=== PATIENT | male | born 1935 | race Caucasian/White ===

== ENCOUNTER → 2016-08-05 | Outpatient (CLI) | payer MEDICARE, OTHER ==
[2016-08-05 10:17] LABS: CHLORIDE,CL 104 mmol/L (98-110); SODIUM,NA 136 mmol/L (136-146)
== END ==
LOC: MW.CHFP 08:46
PROVIDERS: ATTEND Emergency Medicine
DX: N45.3 Epididymo-orchitis (principal); E03.9 Hypothyroidism, unspecified; I10 Essential (primary) hypertension; C77.9 Secondary and unspecified malignant neoplasm of lymph node, unspecified; N39.0 Urinary tract infection, site not specified
CPT/HCPCS: 36415; 80053; 81001; 84443; 85025; 87086; 87088; 87186; G0463

== ENCOUNTER → 2016-08-11 | Outpatient (CLI) | payer MEDICARE, OTHER, MEDICAID | LOC: MW.CHFP 08:00 | PROVIDERS: ATTEND Emergency Medicine | DX: N39.0 Urinary tract infection, site not specified (principal); B96.20 Unspecified Escherichia coli [E. coli] as the cause of diseases classified elsewhere; N45.3 Epididymo-orchitis | CPT/HCPCS: G0463 ==

== ENCOUNTER → 2016-09-07 | Outpatient (CLI) | payer MEDICARE, OTHER ==
[2016-09-07 08:20] LABS: CHLORIDE,CL 107 mmol/L (98-110); SODIUM,NA 143 mmol/L (136-146)
== END ==
LOC: MW.CHFP 07:29
PROVIDERS: ATTEND Emergency Medicine
DX: E03.9 Hypothyroidism, unspecified (principal)
CPT/HCPCS: 36415; 80048; 84443; G0463

== ENCOUNTER → 2016-09-08 | Outpatient (CLI) | payer MEDICARE, OTHER | LOC: MW.CHFP 09:47 | PROVIDERS: ATTEND Emergency Medicine | DX: N39.0 Urinary tract infection, site not specified (principal); N45.3 Epididymo-orchitis; B96.20 Unspecified Escherichia coli [E. coli] as the cause of diseases classified elsewhere | CPT/HCPCS: 81001 ==

== ENCOUNTER → 2016-10-07 | Outpatient (CLI) | payer MEDICARE, OTHER | END | disposition home or self-care (01) | LOC: MW.CHFP 08:32 | PROVIDERS: ATTEND Emergency Medicine | DX: R61 Generalized hyperhidrosis (principal); E03.9 Hypothyroidism, unspecified; N39.0 Urinary tract infection, site not specified; B96.20 Unspecified Escherichia coli [E. coli] as the cause of diseases classified elsewhere | CPT/HCPCS: 36415; 84443; 85025; 85652; 86140; G0463 ==

== ENCOUNTER 2024-01-07 11:35 | Inpatient (IN) | payer MEDICARE, OTHER ==
[2024-01-07 11:58] LABS: BASOPHILS ABSOLUTE AUTO 0.01 K/uL (0.00-0.20); BASOPHILS PERCENT AUTO 0.1 % (0.0-1.0); EOSINOPHILS ABSOLUTE AUTO 0.02 K/uL (0.00-0.45); EOSINOPHILS PERCENT AUTO 0.2 % (0.0-6.0); HEMATOCRIT 33.7 % (42.0-52.0); HEMOGLOBIN 11.8 g/dL (14.0-18.0); IMMATURE GRAN ABSOLUTE AUTO 0.02 K/uL (0.00-0.05); IMMATURE GRAN PERCENT AUTO 0.2 % (0.0-0.4); LYMPHOCYTES ABSOLUTE AUTO 1.92 K/uL (1.00-4.80); LYMPHOCYTES PERCENT AUTO 21.5 % (24.0-44.0); MEAN CORPUSCULAR HEMOGLOBIN 36.2 pg (28.0-32.0); MEAN CORPUSCULAR VOLUME 103.4 fL (83.0-99.0); MEAN PLATELET VOLUME 11.8 fL (9.4-12.4); MONOCYTES ABSOLUTE AUTO 0.42 K/uL (0.00-0.80); MONOCYTES PERCENT AUTO 4.7 % (0.0-8.0); NEUTROPHILS ABSOLUTE AUTO 6.52 K/uL (1.80-7.70); NEUTROPHILS PERCENT AUTO 73.3 % (41.0-71.0); PLATELET COUNT,PLT 103 K/uL (150-400); RED BLOOD CELL COUNT 3.26 M/uL (4.52-5.90); WHITE BLOOD CELL COUNT,WBC 8.91 K/uL (3.9-11.3)
[2024-01-07] MEDS: Ondansetron 4 MG/2 ML SDV IVPUSH ONE (12:00)
[2024-01-07] MEDS: Sodium Chloride 0.9% 1,000 ML IV ONE ×3 (12:00→13:53)
[2024-01-07 12:12] LABS: INR 1.25 (0.86-1.11)
[2024-01-07 12:25] LABS: A/G RATIO 0.8 (0.9-1.6); BILIRUBIN TOTAL 0.1 mg/dL (0.2-1.0); CALCIUM 8.3 mg/dL (8.5-10.1); CARBON DIOXIDE,CO2 18.5 mmol/L (21.0-32.0); CREATININE 6.2 mg/dL (0.8-1.3); EST CRCL DRUG DOSING (CG) 8.27 mL/min; POTASSIUM,K 4.5 mmol/L (3.5-5.1); PROTEIN TOTAL,TP 6.8 g/dL (6.4-8.2)
[2024-01-07 13:10] LABS: CORONAVIRUS COVID-19 NAA NEGATIVE (NEGATIVE); INFLUENZA A NAA NEGATIVE (NEGATIVE); INFLUENZA B NAA NEGATIVE (NEGATIVE)
[2024-01-07 14:14] LABS: APPEARANCE,URINE SLT CLOUDY; COLOR,URINE YELLOW; GLUCOSE,URINE NEGATIVE (NEGATIVE); KETONES,URINE TRACE mg/dL (NEGATIVE); LEUKOCYTE ESTERASE,URINE MODERATE (NEGATIVE); NITRITE,URINE NEGATIVE (NEGATIVE); OCCULT BLOOD,URINE LARGE (NEGATIVE); PROTEIN,URINE 100 mg/dL (NEGATIVE); UROBILINOGEN,URINE 0.2 EU/dL (<2.0)
[2024-01-07 14:18] LABS: BILIRUBIN,URINE SMALL (NEGATIVE)
[2024-01-07 14:24] LABS: AMORPHOUS SEDIMENT,URINE FEW (NEGATIVE); BACTERIA,URINE 2+ (NEGATIVE); EPITHELIAL CELLS,URINE RARE (NONE-FEW); WBC,URINE TOO NUMEROUS TO CT (0-5/HPF)
[2024-01-07 14:26] LABS: CALCIUM 7.4 mg/dL (8.5-10.1); CARBON DIOXIDE,CO2 18.9 mmol/L (21.0-32.0); CREATININE 5.6 mg/dL (0.8-1.3); EST CRCL DRUG DOSING (CG) 9.16 mL/min; POTASSIUM,K 4.9 mmol/L (3.5-5.1)
[2024-01-07] MEDS: cefTRIAXone 1 GM in Sodium Chloride 0.9% 50 ML IV ONE (14:57)
[2024-01-07 15:47] LABS: LACTIC ACID 1.1 mmol/L (0.4-2.0)
[2024-01-07 17:28] LABS: CALCIUM 7.4 mg/dL (8.5-10.1); CARBON DIOXIDE,CO2 19.5 mmol/L (21.0-32.0); CREATININE 5.3 mg/dL (0.8-1.3); EST CRCL DRUG DOSING (CG) 9.68 mL/min; POTASSIUM,K 4.9 mmol/L (3.5-5.1)
[2024-01-07] MEDS: Ondansetron 4 MG/2 ML SDV IVPUSH PRN (17:57)
[2024-01-07] MEDS: Sodium Chloride 0.9% 1,000 ML IV SCH (20:34)
[2024-01-07] MEDS: Rosuvastatin 10 MG Tab PO SCH (20:41)
[2024-01-08] MEDS: Sodium Chloride 0.9% 500 ML IV SCH (04:09)
[2024-01-08 06:38] LABS: A/G RATIO 0.8 (0.9-1.6); ALBUMIN 2.2 g/dL (3.4-5.0); BILIRUBIN TOTAL 0.4 mg/dL (0.2-1.0); CALCIUM 6.5 mg/dL (8.5-10.1); CARBON DIOXIDE,CO2 18.2 mmol/L (21.0-32.0); CREATININE 4.4 mg/dL (0.8-1.3); EST CRCL DRUG DOSING (CG) 11.66 mL/min; POTASSIUM,K 3.9 mmol/L (3.5-5.1); PROTEIN TOTAL,TP 4.9 g/dL (6.4-8.2)
[2024-01-08] MEDS: Levothyroxine 100 MCG Tab PO SCH (06:38)
[2024-01-08 07:38] LABS: EOSINOPHILS ABSOLUTE AUTO 0.07 K/uL (0.00-0.45); EOSINOPHILS PERCENT AUTO 1.3 % (0.0-6.0); HEMATOCRIT 25.6 % (42.0-52.0); IMMATURE GRAN ABSOLUTE AUTO 0.01 K/uL (0.00-0.05); IMMATURE GRAN PERCENT AUTO 0.2 % (0.0-0.4); LYMPHOCYTES ABSOLUTE AUTO 1.31 K/uL (1.00-4.80); LYMPHOCYTES PERCENT AUTO 24.6 % (24.0-44.0); MEAN CORPUSCULAR HEMOGLOBIN 36.6 pg (28.0-32.0); MEAN CORPUSCULAR HGB CONC 35.2 g/dL (32.0-36.0); MEAN CORPUSCULAR VOLUME 104.1 fL (83.0-99.0); MEAN PLATELET VOLUME 11.7 fL (9.4-12.4); MONOCYTES ABSOLUTE AUTO 0.34 K/uL (0.00-0.80); MONOCYTES PERCENT AUTO 6.4 % (0.0-8.0); NEUTROPHILS PERCENT AUTO 67.5 % (41.0-71.0); RED BLOOD CELL COUNT 2.46 M/uL (4.52-5.90); WHITE BLOOD CELL COUNT,WBC 5.33 K/uL (3.9-11.3)
[2024-01-08 07:39] LABS: PLATELET COUNT,PLT 82 K/uL (150-400)
[2024-01-08] MEDS: Norepinephrine Bit/D5W Premix 250 ML IV SCH (10:29)
[2024-01-08] MEDS: cefTRIAXone 1 GM in Sodium Chloride 0.9% 50 ML IV SCH (14:51)
[2024-01-09 05:56] LABS: BASOPHILS ABSOLUTE AUTO 0.01 K/uL (0.00-0.20); BASOPHILS PERCENT AUTO 0.2 % (0.0-1.0); EOSINOPHILS ABSOLUTE AUTO 0.12 K/uL (0.00-0.45); EOSINOPHILS PERCENT AUTO 2.8 % (0.0-6.0); HEMATOCRIT 26.3 % (42.0-52.0); HEMOGLOBIN 9.4 g/dL (14.0-18.0); LYMPHOCYTES ABSOLUTE AUTO 1.19 K/uL (1.00-4.80); LYMPHOCYTES PERCENT AUTO 28.1 % (24.0-44.0); MEAN CORPUSCULAR HEMOGLOBIN 36.4 pg (28.0-32.0); MEAN CORPUSCULAR HGB CONC 35.7 g/dL (32.0-36.0); MEAN CORPUSCULAR VOLUME 101.9 fL (83.0-99.0); MEAN PLATELET VOLUME 12.1 fL (9.4-12.4); MONOCYTES ABSOLUTE AUTO 0.22 K/uL (0.00-0.80); MONOCYTES PERCENT AUTO 5.2 % (0.0-8.0); NEUTROPHILS ABSOLUTE AUTO 2.69 K/uL (1.80-7.70); NEUTROPHILS PERCENT AUTO 63.7 % (41.0-71.0); RED BLOOD CELL COUNT 2.58 M/uL (4.52-5.90); WHITE BLOOD CELL COUNT,WBC 4.23 K/uL (3.9-11.3)
[2024-01-09 06:27] LABS: A/G RATIO 0.7 (0.9-1.6); ALBUMIN 2.2 g/dL (3.4-5.0); BILIRUBIN TOTAL 0.4 mg/dL (0.2-1.0); CALCIUM 6.6 mg/dL (8.5-10.1); CARBON DIOXIDE,CO2 15.5 mmol/L (21.0-32.0); CREATININE 3.5 mg/dL (0.8-1.3); EST CRCL DRUG DOSING (CG) 14.66 mL/min; MAGNESIUM 1.8 mg/dL (1.8-2.4); PROTEIN TOTAL,TP 5.2 g/dL (6.4-8.2)
[2024-01-09 06:59] LABS: PLATELET COUNT,PLT 83 K/uL (150-400)
[2024-01-09] MEDS: Lactated Ringers 1,000 ML IV SCH (09:45)
[2024-01-09] MEDS: Midazolam 1 MG/ML 2 ML SDV IVPUSH ONE (15:05)
[2024-01-10 05:48] LABS: BASOPHILS ABSOLUTE AUTO 0.01 K/uL (0.00-0.20); BASOPHILS PERCENT AUTO 0.2 % (0.0-1.0); EOSINOPHILS PERCENT AUTO 4.9 % (0.0-6.0); HEMATOCRIT 24.8 % (42.0-52.0); HEMOGLOBIN 8.8 g/dL (14.0-18.0); LYMPHOCYTES ABSOLUTE AUTO 1.58 K/uL (1.00-4.80); LYMPHOCYTES PERCENT AUTO 38.6 % (24.0-44.0); MEAN CORPUSCULAR HEMOGLOBIN 36.2 pg (28.0-32.0); MEAN CORPUSCULAR HGB CONC 35.5 g/dL (32.0-36.0); MEAN CORPUSCULAR VOLUME 102.1 fL (83.0-99.0); MEAN PLATELET VOLUME 12.1 fL (9.4-12.4); MONOCYTES ABSOLUTE AUTO 0.28 K/uL (0.00-0.80); MONOCYTES PERCENT AUTO 6.8 % (0.0-8.0); NEUTROPHILS ABSOLUTE AUTO 2.02 K/uL (1.80-7.70); NEUTROPHILS PERCENT AUTO 49.5 % (41.0-71.0); PLATELET COUNT,PLT 64 K/uL (150-400); RED BLOOD CELL COUNT 2.43 M/uL (4.52-5.90); WHITE BLOOD CELL COUNT,WBC 4.09 K/uL (3.9-11.3)
[2024-01-10 06:08] LABS: CALCIUM 6.9 mg/dL (8.5-10.1); CARBON DIOXIDE,CO2 21.4 mmol/L (21.0-32.0); CREATININE 2.8 mg/dL (0.8-1.3); EST CRCL DRUG DOSING (CG) 18.32 mL/min
[2024-01-10] MEDS: Pantoprazole 40 MG in Sodium Chloride 0.9% 10 ML IVPUSH ONE (09:01)
[2024-01-11 05:42] LABS: BASOPHILS ABSOLUTE AUTO 0.01 K/uL (0.00-0.20); BASOPHILS PERCENT AUTO 0.2 % (0.0-1.0); EOSINOPHILS ABSOLUTE AUTO 0.27 K/uL (0.00-0.45); HEMOGLOBIN 9.2 g/dL (14.0-18.0); LYMPHOCYTES ABSOLUTE AUTO 1.49 K/uL (1.00-4.80); MEAN CORPUSCULAR HEMOGLOBIN 35.8 pg (28.0-32.0); MEAN CORPUSCULAR HGB CONC 35.4 g/dL (32.0-36.0); MEAN CORPUSCULAR VOLUME 101.2 fL (83.0-99.0); MEAN PLATELET VOLUME 11.8 fL (9.4-12.4); MONOCYTES ABSOLUTE AUTO 0.28 K/uL (0.00-0.80); MONOCYTES PERCENT AUTO 6.2 % (0.0-8.0); NEUTROPHILS ABSOLUTE AUTO 2.47 K/uL (1.80-7.70); NEUTROPHILS PERCENT AUTO 54.6 % (41.0-71.0); PLATELET COUNT,PLT 69 K/uL (150-400); RED BLOOD CELL COUNT 2.57 M/uL (4.52-5.90); WHITE BLOOD CELL COUNT,WBC 4.52 K/uL (3.9-11.3)
[2024-01-11 06:00] LABS: CALCIUM 7.3 mg/dL (8.5-10.1); CARBON DIOXIDE,CO2 20.8 mmol/L (21.0-32.0); CREATININE 2.3 mg/dL (0.8-1.3); EST CRCL DRUG DOSING (CG) 22.3 mL/min
[2024-01-11] MEDS: Levothyroxine 150 MCG Tab PO SCH (06:30)
[2024-01-11] MEDS: Pantoprazole 40 MG Tab.CR PO SCH (06:30)
[2024-01-11] MEDS: Midodrine 5 MG Tab PO SCH (10:07)
[2024-01-12 05:39] LABS: EOSINOPHILS ABSOLUTE AUTO 0.25 K/uL (0.00-0.45); EOSINOPHILS PERCENT AUTO 6.5 % (0.0-6.0); HEMATOCRIT 23.9 % (42.0-52.0); HEMOGLOBIN 8.4 g/dL (14.0-18.0); IMMATURE GRAN ABSOLUTE AUTO 0.01 K/uL (0.00-0.05); IMMATURE GRAN PERCENT AUTO 0.3 % (0.0-0.4); LYMPHOCYTES ABSOLUTE AUTO 1.47 K/uL (1.00-4.80); LYMPHOCYTES PERCENT AUTO 38.3 % (24.0-44.0); MEAN CORPUSCULAR HEMOGLOBIN 36.1 pg (28.0-32.0); MEAN CORPUSCULAR HGB CONC 35.1 g/dL (32.0-36.0); MEAN CORPUSCULAR VOLUME 102.6 fL (83.0-99.0); MEAN PLATELET VOLUME 11.2 fL (9.4-12.4); MONOCYTES ABSOLUTE AUTO 0.23 K/uL (0.00-0.80); NEUTROPHILS ABSOLUTE AUTO 1.88 K/uL (1.80-7.70); NEUTROPHILS PERCENT AUTO 48.9 % (41.0-71.0); PLATELET COUNT,PLT 62 K/uL (150-400); RED BLOOD CELL COUNT 2.33 M/uL (4.52-5.90); WHITE BLOOD CELL COUNT,WBC 3.84 K/uL (3.9-11.3)
[2024-01-12 06:02] LABS: CALCIUM 7.3 mg/dL (8.5-10.1); CARBON DIOXIDE,CO2 22.5 mmol/L (21.0-32.0); CREATININE 1.9 mg/dL (0.8-1.3); POTASSIUM,K 3.7 mmol/L (3.5-5.1)
[2024-01-12] MEDS: Ampicillin 2 GM in Sodium Chloride 0.9% 100 ML IV SCH (10:07)
[2024-01-12] MEDS: Midodrine 5 MG Tab PO ONE (11:35)
[2024-01-12] MEDS: Midodrine 5 MG Tab PO SCH (21:13)
[2024-01-13 05:43] LABS: EOSINOPHILS ABSOLUTE AUTO 0.17 K/uL (0.00-0.45); EOSINOPHILS PERCENT AUTO 4.6 % (0.0-6.0); HEMATOCRIT 22.3 % (42.0-52.0); LYMPHOCYTES ABSOLUTE AUTO 1.26 K/uL (1.00-4.80); MEAN CORPUSCULAR HEMOGLOBIN 36.7 pg (28.0-32.0); MEAN CORPUSCULAR HGB CONC 35.9 g/dL (32.0-36.0); MEAN CORPUSCULAR VOLUME 102.3 fL (83.0-99.0); MEAN PLATELET VOLUME 11.6 fL (9.4-12.4); MONOCYTES ABSOLUTE AUTO 0.23 K/uL (0.00-0.80); MONOCYTES PERCENT AUTO 6.2 % (0.0-8.0); NEUTROPHILS ABSOLUTE AUTO 2.05 K/uL (1.80-7.70); NEUTROPHILS PERCENT AUTO 55.2 % (41.0-71.0); PLATELET COUNT,PLT 72 K/uL (150-400); RED BLOOD CELL COUNT 2.18 M/uL (4.52-5.90); WHITE BLOOD CELL COUNT,WBC 3.71 K/uL (3.9-11.3)
[2024-01-13 05:57] LABS: CALCIUM 7.3 mg/dL (8.5-10.1); CARBON DIOXIDE,CO2 23.3 mmol/L (21.0-32.0); CREATININE 1.8 mg/dL (0.8-1.3); EST CRCL DRUG DOSING (CG) 28.5 mL/min; POTASSIUM,K 4.1 mmol/L (3.5-5.1)
[2024-01-14 05:59] LABS: BASOPHILS ABSOLUTE AUTO 0.01 K/uL (0.00-0.20); BASOPHILS PERCENT AUTO 0.3 % (0.0-1.0); EOSINOPHILS ABSOLUTE AUTO 0.19 K/uL (0.00-0.45); EOSINOPHILS PERCENT AUTO 5.9 % (0.0-6.0); HEMATOCRIT 23.1 % (42.0-52.0); HEMOGLOBIN 8.2 g/dL (14.0-18.0); LYMPHOCYTES PERCENT AUTO 43.6 % (24.0-44.0); MEAN CORPUSCULAR HEMOGLOBIN 36.4 pg (28.0-32.0); MEAN CORPUSCULAR HGB CONC 35.5 g/dL (32.0-36.0); MEAN CORPUSCULAR VOLUME 102.7 fL (83.0-99.0); MONOCYTES ABSOLUTE AUTO 0.25 K/uL (0.00-0.80); MONOCYTES PERCENT AUTO 7.8 % (0.0-8.0); NEUTROPHILS ABSOLUTE AUTO 1.36 K/uL (1.80-7.70); NEUTROPHILS PERCENT AUTO 42.4 % (41.0-71.0); PLATELET COUNT,PLT 84 K/uL (150-400); RED BLOOD CELL COUNT 2.25 M/uL (4.52-5.90); WHITE BLOOD CELL COUNT,WBC 3.21 K/uL (3.9-11.3)
[2024-01-14 06:21] LABS: CALCIUM 7.7 mg/dL (8.5-10.1); CARBON DIOXIDE,CO2 25.7 mmol/L (21.0-32.0); CREATININE 1.7 mg/dL (0.8-1.3); EST CRCL DRUG DOSING (CG) 30.18 mL/min; POTASSIUM,K 3.8 mmol/L (3.5-5.1)
[2024-01-15 06:14] LABS: BASOPHILS ABSOLUTE AUTO 0.01 K/uL (0.00-0.20); BASOPHILS PERCENT AUTO 0.3 % (0.0-1.0); EOSINOPHILS ABSOLUTE AUTO 0.17 K/uL (0.00-0.45); EOSINOPHILS PERCENT AUTO 5.1 % (0.0-6.0); HEMATOCRIT 23.7 % (42.0-52.0); HEMOGLOBIN 8.4 g/dL (14.0-18.0); LYMPHOCYTES ABSOLUTE AUTO 1.36 K/uL (1.00-4.80); LYMPHOCYTES PERCENT AUTO 40.7 % (24.0-44.0); MEAN CORPUSCULAR HEMOGLOBIN 36.4 pg (28.0-32.0); MEAN CORPUSCULAR HGB CONC 35.4 g/dL (32.0-36.0); MEAN CORPUSCULAR VOLUME 102.6 fL (83.0-99.0); MEAN PLATELET VOLUME 11.1 fL (9.4-12.4); MONOCYTES ABSOLUTE AUTO 0.22 K/uL (0.00-0.80); MONOCYTES PERCENT AUTO 6.6 % (0.0-8.0); NEUTROPHILS ABSOLUTE AUTO 1.58 K/uL (1.80-7.70); NEUTROPHILS PERCENT AUTO 47.3 % (41.0-71.0); PLATELET COUNT,PLT 101 K/uL (150-400); RED BLOOD CELL COUNT 2.31 M/uL (4.52-5.90); WHITE BLOOD CELL COUNT,WBC 3.34 K/uL (3.9-11.3)
[2024-01-15 06:34] LABS: CALCIUM 7.5 mg/dL (8.5-10.1); CARBON DIOXIDE,CO2 24.9 mmol/L (21.0-32.0); CREATININE 1.5 mg/dL (0.8-1.3); EST CRCL DRUG DOSING (CG) 34.2 mL/min; MAGNESIUM 1.5 mg/dL (1.8-2.4)
[2024-01-15] MEDS: Magnesium Sulfate/Water 2 GM in Premix Bag 1 BAG IV ONE (10:21)
[2024-01-15] MEDS: Tamsulosin 0.4 MG Cap.ER PO ONE (13:03)
[2024-01-16 06:03] LABS: HEMATOCRIT 22.7 % (42.0-52.0); HEMOGLOBIN 7.9 g/dL (14.0-18.0); MEAN CORPUSCULAR HEMOGLOBIN 35.9 pg (28.0-32.0); MEAN CORPUSCULAR HGB CONC 34.8 g/dL (32.0-36.0); MEAN CORPUSCULAR VOLUME 103.2 fL (83.0-99.0); MEAN PLATELET VOLUME 10.9 fL (9.4-12.4); PLATELET COUNT,PLT 98 K/uL (150-400); WHITE BLOOD CELL COUNT,WBC 2.47 K/uL (3.9-11.3)
[2024-01-16 06:13] LABS: CALCIUM 7.8 mg/dL (8.5-10.1); CARBON DIOXIDE,CO2 28.2 mmol/L (21.0-32.0); CREATININE 1.4 mg/dL (0.8-1.3); EST CRCL DRUG DOSING (CG) 36.64 mL/min; POTASSIUM,K 4.2 mmol/L (3.5-5.1)
== END 2024-01-16 12:15 | disposition home or self-care (01) | DRG 682 ==
LOC: MW.ED 11:35 → MW.ICU 15:05 → MW.MS 01-13 14:14
PROVIDERS: ADMIT Internal Medicine; ATTEND Family Medicine
DX: S06.6X0A Traumatic subarachnoid hemorrhage without loss of consciousness, initial encounter (principal); N39.0 Urinary tract infection, site not specified; N17.9 Acute kidney failure, unspecified; E86.0 Dehydration; I10 Essential (primary) hypertension; E78.00 Pure hypercholesterolemia, unspecified; I25.2 Old myocardial infarction; Z95.1 Presence of aortocoronary bypass graft; Z95.5 Presence of coronary angioplasty implant and graft; Z75.8 Other problems related to medical facilities and other health care; Z79.82 Long term (current) use of aspirin; Z79.890 Hormone replacement therapy; Z79.899 Other long term (current) drug therapy; S06.6XAA Traumatic subarachnoid hemorrhage with loss of consciousness status unknown, initial encounter; N30.00 Acute cystitis without hematuria; I95.9 Hypotension, unspecified; W19.XXXA Unspecified fall, initial encounter; N28.9 Disorder of kidney and ureter, unspecified; J44.9 Chronic obstructive pulmonary disease, unspecified; I25.10 Atherosclerotic heart disease of native coronary artery without angina pectoris
CPT/HCPCS: 0240U; 36415; 51702; 51798; 70450; 71045; 74176; 76770; 80048; 80053; 81001; 82550; 82570; 83605; 83690; 83735; 83880; 83935; 84300; 84484; 85025; 85027; 85610; 87040; 87086; 87088; 87186; 93005; 96361; 96374; 96375; 97110; 97162; 97165; 97530; 99285; 36556; 93010; 99223; 99231; 99232; 99233; 99239; A9270-GY; J0290; J0696; J2250; J2405; J2470; J3475; J3490; J7030; J7040; J7120